=== PATIENT | male | born 1990 | race Caucasian/White ===

== ENCOUNTER 2018-02-13 22:56 | Emergency (ER) | payer SELFPAY ==
[2018-02-13] MEDS ORDERED: Diphtheria,Pertussis(Acell),Tetanus Vaccine 0.5 ML Syringe IM ONE (23:22)
--- NOTE | 2018-02-13 23:25 | EDM.PDOC ---
ED HPI GENERAL MEDICAL PROBLEM - General Chief Complaint: Lower Extremity Injury/Pain Stated Complaint: "I think I fractured my left elbow and right ankle Time Seen by Provider: 02/13/18 23:13 Source of Information: Reports: Patient History Limitations: Reports: No Limitations - History of Present Illness INITIAL COMMENTS - FREE TEXT/NARRATIVE: This patient is a 27 year old male that presents to the ER. Patient reports that he was skateboarding and showing off for his nephews. Patient reports that he fell off the skateboard. Patient reports having left elbow pain, left wrist pain, and right ankle pain. Patient has abrasions to the left posterior shoulder , left elbow, left lower lateral back, right knee. Patient denies dennison, dizziness , n, v, d, f, vision changes, neck pain, neck stiffness, back pain, head injury , loc, urinary/bowel incontinence. Patient is alert and oriented. Onset: Today Onset Date: 02/13/18 Onset Time: 19:30 Duration: Hour(s): (4) Location: Reports: Upper Extremity, Left, Lower Extremity, Right Front/Back Body Image: 1 - pain, tenderness, swelling. 2 - pain, tenderness. 3 - pain, tenderness. 4 - abrasion 5 - abrasion 6 - abrasion 7 - abrasion Quality: Reports: Ache Severity: Mild Improves with: Reports: Immobilization Worsens with: Reports: Movement Associated Symptoms: Denies: Confusion, Chest Pain, Cough, cough w sputum, Diaphoresis, Fever/Chills, Headaches, Loss of Appetite, Malaise, Nausea/Vomiting , Rash, Seizure, Shortness of Breath, Syncope, Weakness Left Elbow Pain Score (Numeric/FACES): 8 Review of Systems - Review of Systems Review Of Systems: See Below Constitutional: Reports: No Symptoms Eyes: Reports: No Symptoms Ears: Reports: No Symptoms Nose: Reports: No Symptoms Mouth/Throat: Reports: No Symptoms Respiratory: Reports: No Symptoms Cardiovascular: Reports: No Symptoms GI/Abdominal: Reports: No Symptoms Genitourinary: Reports: No Symptoms Musculoskeletal: Reports: Joint Pain (right ankle, left wrist, left elbow. ), Joint Swelling (right ankle) Skin: Reports: Wound (abrasion left elbow, right knee, left lateral lower back, left posterior shoulder. ) Neurological: Reports: No Symptoms Psychiatric: Reports: No Symptoms ED EXAM, GENERAL - Physical Exam Exam: See Below Exam Limited By: No Limitations General Appearance: Alert, WD/WN, No Apparent Distress Eye Exam: Bilateral Eye: EOMI, Normal Inspection, PERRL Ears: Normal External Exam, Normal Canal, Hearing Grossly Normal, Normal TMs Ear Exam: Bilateral Ear: Auricle Normal, Canal Normal, TM normal Nose: Normal Inspection, Normal Mucosa, No Blood Throat/Mouth: Normal Inspection, Normal Lips, Normal Teeth, Normal Gums, Normal Oropharynx, Normal Voice, No Airway Compromise Head: Atraumatic, Normocephalic Neck: Normal Inspection, Supple, Non-Tender, Full Range of Motion Respiratory/Chest: No Respiratory Distress, Lungs Clear, Normal Breath Sounds, No Accessory Muscle Use, Chest Non-Tender Cardiovascular: Normal Peripheral Pulses, Regular Rate, Rhythm, No Edema, No Gallop, No JVD, No Murmur, No Rub Peripheral Pulses: 2+: Radial (L), Radial (R), Posterior Tibial (L), Posterior Tibial (R), Dorsalis Pedis (L), Dorsalis Pedis (R) GI/Abdominal: Normal Bowel Sounds, Soft, Non-Tender, No Organomegaly, No Distention, No Abnormal Bruit, No Mass, Pelvis Stable (Male) Exam: Deferred Rectal (Males) Exam: Deferred Back Exam: Normal Inspection, Full Range of Motion. No: CVA Tenderness (L), CVA Tenderness (R), Decreased Range of Motion, Muscle Spasm, Paraspinal Tenderness, Vertebral Tenderness Extremities: No Pedal Edema, Normal Capillary Refill, Other (Pain, tenderness, swelling right ankle medial. Pain, tenderness left elbow. Pain, tenderness left wrist. ) Neurological: Alert, Oriented, Normal Cognition, No Motor/Sensory Deficits Psychiatric: Normal Affect, Normal Mood Skin Exam: Warm, Dry, Normal Color, No Rash, Wound/Incision (multiple abrasions. ) Lymphatic: No Adenopathy Course - Vital Signs Last Recorded V/S: Last Vital Signs Temp 98.8 F 02/13/18 23:17 Pulse 117 H 02/13/18 23:17 Resp 20 07/06/18 23:17 BP 122/54 L 07/06/18 23:17 Pulse Ox 99 02/13/18 23:17 - Orders/Labs/Meds Orders: Active Orders 24 hr Category Date Time Status Vaccines to be Administered [RC] PER UNIT ROUTINE Care 02/13/18 23:22 Active Ankle Min 3V Rt [CR] Stat Exams 02/13/18 23:22 Taken Elbow Min 3V Lt [CR] Stat Exams 02/13/18 23:22 Ordered Wrist Comp Min 3V Lt [CR] Stat Exams 02/13/18 23:22 Ordered Meds: Medications Discontinued Medications Generic Name Dose Route Start Last Admin Trade Name Freq PRN Reason Stop Dose Admin Diphtheria/Tetanus/Acell Pertussis 0.5 ml 02/13/18 23:22 02/13/18 23:28 Adacel IM 02/13/18 23:23 0.5 ml .ONCE ONE Administration - Radiology Interpretation Free Text/Narrative:: left Elbow: Possible small subtle fx. Right ankle: Soft tissue swelling, no fx, no dislocation left wrist: no fx, no soft tissue swelling, no dislocation Radiologist will also read films. Departure - Departure Time of Disposition: 23:53 Disposition: Home, Self-Care 01 Condition: Good Clinical Impression: Abrasion Elbow fracture, left Qualifiers: Encounter type: initial encounter Fracture type: closed Qualified Code(s): S42.402A - Unspecified fracture of lower end of left humerus, initial encounter for closed fracture Right ankle sprain Qualifiers: Encounter type: initial encounter Involved ligament of ankle: unspecified ligament Qualified Code(s): S93.401A - Sprain of unspecified ligament of right ankle, initial encounter Sprain of left wrist Qualifiers: Encounter type: initial encounter Qualified Code(s): S63.502A - Unspecified sprain of left wrist, initial encounter - Discharge Information Instructions: Ankle Sprain, [id number], Contusion, Abrasion, [id number], Radial Head Fracture, [id number] Forms: ED Department Discharge Additional Instructions: Followup with your primary care provider Return to the ER for worsening of condition or any emergent concerns Rest Ice Elevate Crutches as needed, weight bearing as tolerated Ankle air splint as needed IbuProfen as needed for pain and swelling - My Orders Last 24 Hours: My Active Orders 02/13/18 23:22 Vaccines to be Administered [RC] PER UNIT ROUTINE Ankle Min 3V Rt [CR] Stat Elbow Min 3V Lt [CR] Stat Wrist Comp Min 3V Lt [CR] Stat - Assessment/Plan Last 24 Hours: My Active Orders 02/13/18 23:22 Vaccines to be Administered [RC] PER UNIT ROUTINE Ankle Min 3V Rt [CR] Stat Elbow Min 3V Lt [CR] Stat Wrist Comp Min 3V Lt [CR] Stat Plan: PLEASE SEE RN NOTE FOR PFSH.
== END 2018-02-14 00:15 | disposition home or self-care (01) ==
LOC: CC.ED 22:56
DX: S42.402A Unspecified fracture of lower end of left humerus, initial encounter for closed fracture (principal); S63.502A Unspecified sprain of left wrist, initial encounter; S93.401A Sprain of unspecified ligament of right ankle, initial encounter; S80.211A Abrasion, right knee, initial encounter; S30.810A Abrasion of lower back and pelvis, initial encounter; S40.212A Abrasion of left shoulder, initial encounter; V00.131A Fall from skateboard, initial encounter; Z23 Encounter for immunization
CPT/HCPCS: 73080-LT; 73110-LT; 73610-RT; 90471; 90715; 99283